=== PATIENT | male | born 1990 | race Caucasian/White ===

== ENCOUNTER 2017-11-24 12:57 | Emergency (ER) | payer OTHER, SELFPAY ==
--- NOTE | 2017-11-24 12:57 | DT_ITS ---
This patient was seen during an EMR downtime November 17, 2017 - November 24, 2017. This patient may have a combination of paper and electronic documentation or all paper documentation. All documentation is viewable within the e-chart portion of [employer] for each patient visit.
[2017-11-24 12:58] VITALS: BP 150/74; PULSE 70; RESP 16; TEMP 36.8; O2SAT 100; BMI 16.9
--- NOTE | 2017-11-24 13:34 | CT_ITS ---
STUDY: CT BRAIN WITHOUT CONTRAST REASON FOR EXAM: Male, 27 years old. HEADACHE X3 DAYS. RADIATION DOSAGE (If Supplied By Facility): CTDIvol = ( 44.99 ) mGy, DLP = ( 782.05 ) mGycm TECHNIQUE: Transaxial CT imaging of the brain was performed without administration of intravenous contrast material. Individualized dose optimization techniques were used for this CT. COMPARISON: None. FINDINGS: Normal soft tissue structures. Normal calvarium. Normal size ventricles and extra-axial spaces for the patient's age. Normal white matter tracts of the cerebral hemispheres. Normal basal ganglia and thalami. Normal brainstem. Normal cerebellum. There is no intracranial hemorrhage. There are no findings of an acute ischemic infarction. Normal visualized paranasal sinuses. CT/Brain/Head without Contrast IMPRESSION: Normal unenhanced CT scan of the brain. Electronically Signed: Angle Romero MD at 14:44 EDT Tel , Service support ,
[2017-11-24 15:00] VITALS: BP 129/90; PULSE 68; RESP 16; O2SAT 100
--- NOTE | 2017-11-24 15:36 | ED.VIS.GEN ---
History of Present Illness Chief Complaint: General Illness Informant: Patient Onset: Days - 2-3 Context: Gradual Onset Timing: Continuous Quality: achy Location: all over Current Severity: Moderate Maximum Severity: Moderate Worsened by: moving around Relieved by: nothing Associated Symptoms: headache occipital, photophobia Narrative: Feeling like he has a stiff neck along with achiness there. Has had headaches in the past but not quite like this. Some photophobia but no vision changes or diplopia. No thunderclap or sudden onset of any symptoms. No fevers or chills or coughing. No sore throat or odynophagia or earache or confusion or rash. He was bit by a tick 1-2 weeks ago but knows for a fact that was on for less than 24 hours before he pulled it off. Past Medical History - Allergies and Home Meds Allergies/Adverse Reactions: Allergies naproxen [From Naprosyn] Allergy (Verified 07/31/13 19:28) Itching Primary Care Physician: Valentin Rodrigues MD [Primary Care Provider] - Past Medical History: None Surgical History: no surgical history Smoking Status: Current every day smoker Drugs: None - No IV drug use Review of Systems All systems negative except as indicated General: Reports: Malaise Eyes: Reports: - - Photophobia. Denies: Visual changes - bilaterally, Blurred Vision - bilaterally, Diplopia ENT: Denies: Bilateral ear pain Cardiovascular: Denies: Chest pain, Palpitations Respiratory: Denies: Dyspnea, Cough Gastrointestinal: Denies: Abdominal pain, Nausea, Vomiting, Diarrhea Genitourinary: Denies: Dysuria, Hematuria Musculoskeletal: Reports: Myalgias, Neck pain, Back pain - low. Denies: Arthralgias, Swelling Skin: Denies: Rash, Abscess, Wounds Neurological: Reports: Headache. Denies: Weakness, Parasthesia, Numbness Endocrine: Denies: Polyuria, Polydipsia, Heat intolerance, Cold intolerance Physical Exam Vital Signs/Narrative: Vital Signs Temp Pulse Resp BP Pulse Ox 11/24/17 15:00 68 16 129/90 H 100 11/24/17 12:58 98.3 F 70 16 150/74 H 100 Inital Vital Signs reviewed: Yes General: Well nourished, Well developed, - - Well-appearing NAD Head: Normocephalic, Atraumatic Eyes: Perrl - No objective photophobia, EOMI ENT: Moist mucous membranes, No rhinorrhea Neck: Supple, Nontender, No lymphadenopathy, - - Full range of motion without any apparent difficulty, turning his head to look behind him at family members Cardiovascular: Regular rate, Regular rhythm, No murmurs Respiratory: No distress, CTA bilaterally, Chest nontender Abdomen: Soft, Nontender, Nondistended, Normal bowel sounds Back: Nontender, Normal Inspection Extremities: Nontender, No edema Skin: Normal color, No rash Neurological: Alert, Oriented x3, Cranial nerves II-XII grossly intact, Normal Strength, Normal Sensation, Normal DTR, Normal Gait Psychological: Normal affect Diagnostic/Tx/Re-eval Clinical Impression(s) from Imaging Studies Brain CT 11/24/17 13:34 IMPRESSION: Normal unenhanced CT scan of the brain. Electronically Signed: Angle Romero MD at 14:44 EDT Tel , Service support , - Medical Decision Making Given his new unusual headache occipitally, CT was obtained and is unremarkable. I discussed at length with patient and family concerning Lyme disease and meningitis, which I do not think he has either. I offered LP, he declines, as I discussed certainly there is a possibility of viral meningitis, but I am at a very low suspicion for herpes meningitis. Furthermore we discussed that specifically, he has never had herpes before and is monogamous with his significant other. He is encouraged to return for signs/symptoms of meningitis, confusion, etc. He is comfortable with supportive care following up with his doctor at this time. ED Disposition - Plan for ED Patient: Disposition: Home or Assisted Living Chief Complaint: General Illness Diagnosis: Viral syndrome Instructions: ED Viral Syndrome Referrals: Valentin Rodrigues MD [Primary Care Provider] - 3-5 Days if not improving
[2017-11-24] MEDS: Ibuprofen 600 MG Tablet PO (15:43)
== END 2017-11-24 15:44 | disposition home or self-care (01) ==
PROVIDERS: Emergency Provider Emergency Medicine; Family Provider Family Medicine; PCP Family Medicine
DX: B34.9 Viral infection, unspecified (principal); F17.200 Nicotine dependence, unspecified, uncomplicated
CPT/HCPCS: 70450; 99283

== ENCOUNTER 2018-06-24 16:53 | Emergency (ER) | payer OTHER, SELFPAY ==
[2018-06-24 16:54] VITALS: BP 146/83; PULSE 69; RESP 18; TEMP 37.2; O2SAT 100; BMI 19.2
[2018-06-24 17:02] VITALS: BP 145/96; PULSE 74; PULSE 81; RESP 14; RESP 17; TEMP 36.8; O2SAT 100
--- NOTE | 2018-06-24 17:14 | EKG12_ITS ---
Test Reason : CP Blood Pressure : / mmHG Vent. Rate : 074 BPM Atrial Rate : 074 BPM P-R Int : 154 ms QRS Dur : 082 ms QT Int : 354 ms P-R-T Axes : 080 079 059 degrees QTc Int : 392 ms Normal sinus rhythm with sinus arrhythmia Normal ECG Confirmed by SANJANA HERNANDEZ, MANDEEP ([id number]), photography editor ALFREDO PARNELL ([id number]) on 06/29/2018 10:11:46 AM Referred By: FABIOLA Confirmed By:MANDEEP ALLAN MD
--- NOTE | 2018-06-24 17:17 | ED.DCSUM_ITS ---
- ER Visit Summary Date of Service: 06/24/18 Chief Complaint: Chest tightness and shortness of breath History of Present Illness: The patient is a 28 M who feels as if he cannot get a deep breath over the past 3 days. He describes a tight bandlike sensation around his chest. Patient states if he goes out to side and breathing the cold air he can breathe just fine with no difficulty. He has not had significant cough. He has a history of palpitations and continues to have these intermittently, but no worse than his baseline. Family history significant for sclerosing of the heart and an uncle and a grandmother with pulmonary emboli, attributed to her cancer. Physical Examination: Vital signs are unremarkable. Patient sitting on the side of the bed no acute distress. He is alert and talkative. Head neck examination normal. Heart is regular rate and rhythm. Lung sounds are clear. Abdomen is soft and nontender. Peripheral pulses are noted throughout. Test Results: CBC and chemistry studies are unremarkable. Troponin is less than 0.015. EKG is sinus at 74 with no sign of acute ischemia. Two-view chest x-ray shows no acute process. Patient has not had any significant arrhythmias noted on alarm security or surveillance monitor. Emergency Department Course and Treatment: Test results are discussed with patient and mother at bedside. He will continue to monitor his symptoms. He is to follow with his primary care physician and return for any worsening symptoms or concerns. Treatment Plan: [] Disposition: Discharge Impression: Atypical chest pain This note was generated with [employer] dictation software. It may contain incorrect words, spelling, and punctuation that were not noted in review of the chart prior to signing ED Disposition - Plan for ED Patient: Chief Complaint: Shortness of Breath Referrals: Valentin Rodrigues MD [Primary Care Provider] -
--- NOTE | 2018-06-24 17:24 | ED.RN ---
PT REFUSING IV AT THIS TIME. BLOOD DRAW COMPLETED. DR. HICKS INFORMED.
--- NOTE | 2018-06-24 17:25 | RAD_ITS ---
STUDY: X-RAY CHEST REASON FOR EXAM: Male, 28 years old. Shortness of breath with heaviness of the chest. TECHNIQUE: PA and lateral chest COMPARISON: None. FINDINGS: The lungs are clear and expanded. Normal cardiomediastinal silhouette, leeanna and pleural margins. No acute osseous or upper abdominal process. RAD/Chest PA and Lateral IMPRESSION: No acute cardiopulmonary process. Electronically Signed: Quentin Bland MD at 18:07 EST Tel , Service support ,
[2018-06-24 17:47] LABS: Absolute Lymphocyte Count 2.48 X10^3/ul (0.83-4.51); Basophil# 0.02 X10^3/uL; Basophil% 0.4 % (0-1); Hematocrit 41.9 % (40-54); Hemoglobin 14.5 g/dl (13.0-16.5); Lymphocyte # 2.48 X10^3/ul (4.0); Lymphocyte % 48.4 % (19-41); Mean Corp Hgb Conc 34.6 g/gl (32-36); Mean Corpuscular Volume 89.5 fL (80-94); Mean Platelet Vol. 10.5 fl (6.2-12.0); Monocyte# 0.54 X10^3/uL; Monocyte% 10.5 % (0-10); Neutrophil # 1.97 X10^3/uL (2.7-7.7); Neutrophil % 38.5 % (47-70); Platelet Count 227 K/mm3 (150-450); RBC Distribution Width CV 12.5 % (11.6-14.6); Red Blood Count 4.68 M/mm3 (4.6-6.2); White Blood Count 5.1 K/mm3 (4.4-11.0)
[2018-06-24 17:51] LABS: Anion Gap 6 (5-15); BUN 13 mg/dL (7-18); BUN/Creat Ratio 16.1 RATIO (10-20); Calcium,Total 8.8 mg/dL (8.5-10.1); Chloride 106 mmol/L (98-107); Creatinine, Serum 0.81 mg/dL (0.70-1.30); EST Glomerular Filtration Rate 120 mL/min (>60); Est Glom Filt Rate - Afr Amer 145 mL/min (>60); Glucose 84 mg/dL (74-106); Sodium Level 139 mmol/L (136-145)
[2018-06-24 18:01] LABS: POSITIVE COUNT NO; POSITIVE DIFFERENTIAL NO; POSITIVE MORPHOLOGY NO
--- NOTE | 2018-06-24 18:27 | ED.DEP ---
ED Disposition - Plan for ED Patient: Disposition: Home or Assisted Living Chief Complaint: Shortness of Breath Instructions: ED Chest Pain Atypical Unkn Cause Referrals: Valentin Rodrigues MD [Primary Care Provider] - 5-7 Days
[2018-06-24 18:36] VITALS: BP 137/94; PULSE 78; RESP 17; O2SAT 98
== END 2018-06-24 18:37 | disposition home or self-care (01) ==
PROVIDERS: Emergency Provider Emergency Medicine; Family Provider Family Medicine; PCP Family Medicine
DX: R07.89 Other chest pain (principal); R05 Cough; R06.00 Dyspnea, unspecified; F17.200 Nicotine dependence, unspecified, uncomplicated
CPT/HCPCS: 36415; 71046; 80048; 84484; 85025; 93005; 99283

== ENCOUNTER 2021-10-01 10:18 | Outpatient (CLI) | payer BC, SELFPAY ==
[2021-10-01 15:46] LABS: Chlamydia Trachomatis by PCR Negative (Negative); Neisserai gonorrhoeae by PCR Negative (Negative); Probe Check PASS; Sample Adequacy Control PASS; Specimen Processing Control PASS
== END 2021-10-01 23:59 | disposition home or self-care (01) ==
LOC: LAB 10:19
PROVIDERS: PCP Family Medicine; Referring Provider Nurse Practitioner Family; Visit Provider Nurse Practitioner Family
DX: R30.0 Dysuria (principal)
CPT/HCPCS: 87086; 87491; 87591

== ENCOUNTER 2022-09-28 20:38 | Emergency (ER) | payer OTHER, SELFPAY ==
[2022-09-28 20:39] VITALS: BP 165/84; PULSE 129; RESP 18; TEMP 36.6; O2SAT 100
--- NOTE | 2022-09-28 20:46 | EKG12_ITS ---
Test Reason : PALPITATIONS Blood Pressure : / mmHG Vent. Rate : 117 BPM Atrial Rate : 117 BPM P-R Int : 180 ms QRS Dur : 080 ms QT Int : 310 ms P-R-T Axes : 074 080 053 degrees QTc Int : 432 ms Sinus tachycardia Otherwise normal ECG Confirmed by THOM MCCLENDON ([id number]), market editor MINDY DELGADO ([id number]) on 10/01/2022 7:06:22 AM Referred By: Mercedez Torres Confirmed By:THOM MCCLENDON
--- NOTE | 2022-09-28 20:55 | RAD_ITS ---
INDICATION: Palpitations, chest pain EXAMINATION/TECHNIQUE: X-RAY - XR Chest 1 View COMPARISON: 06/24/2018 FINDINGS: LINES/DEVICES: None. LUNGS: No consolidation, edema or effusion. No pneumothorax. MEDIASTINUM AND CARDIOVASCULAR STRUCTURES: Cardiac silhouette not enlarged. Central airways and mediastinal contour are unremarkable. RAD/Chest 1 View (Portable) IMPRESSION: No radiographic evidence of acute cardiopulmonary disease. Electronically Signed: Altaf Last MD at 21:05 EDT ,
[2022-09-28 21:02] LABS: Absolute Lymphocyte Count 2.95 X10^3/uL (0.83-4.51); Absolute Neutrophil Count 2.1 X10^3/uL (2.0-7.7); Basophil# 0.03 X10^3/uL; Basophil% 0.5 % (0-1); Eosinophil# 0.07 X10^3/uL; Eosinophils% 1.2 % (0-5); Hematocrit 39.4 % (40-54); Hemoglobin 13.4 g/dL (13.0-16.5); Lymphocyte # 2.95 X10^3/ul (0.83-4.51); Lymphocyte % 49.6 % (19-41); Mean Corpuscular Hgb 30.5 pg (27.0-32.0); Mean Corpuscular Volume 89.5 fL (80-94); Mean Platelet Vol. 9.5 fl (6.2-12.0); Monocyte# 0.82 X10^3/uL; Monocyte% 13.8 % (0-10); NRBC Flagged by Analyzer 0 % (0-5); Neutrophil # 2.07 X10^3/uL (2.7-7.7); Neutrophil % 34.7 % (47-70); Platelet Count 242 K/mm3 (150-450); RBC Distribution Width CV 11.6 % (11.6-14.6); RBC Distribution Width SD 37.7 fl (35.1-43.9)
[2022-09-28 21:09] LABS: International Normalized Ratio 1.1; Prothrombin Time (Protime)PT. 13.9 SECONDS (11.7-14.9)
[2022-09-28 21:21] LABS: Anion Gap 5 (5-15); BUN 29 mg/dL (7-18); Calcium,Total 8.8 mg/dL (8.5-10.1); Chloride 105 mmol/L (98-107); Creatinine, Serum 1.16 mg/dL (0.70-1.30); EST Glomerular Filtration Rate 77 mL/min (>60); Est Glom Filt Rate - Afr Amer 93 mL/min (>60); Estimated Creatinine Clearance 35.48 ml/min; Glucose 162 mg/dL (74-106); Potassium 3.4 mmol/L (3.5-5.1); Sodium Level 139 mmol/L (136-145); Troponin-I HS (w/2H Reflex) 7 pg/mL (3.0-78.0)
[2022-09-28 22:30] VITALS: BP 146/63; PULSE 83; RESP 16; O2SAT 98
--- NOTE | 2022-09-28 22:35 | EX.ED.DYSGE1 ---
HPI History of Present Illness Chief Complaint: Palpitations Narrative Narrative: Patient is a 32-year-old male with ongoing history of palpitations (over had recent evaluation with echocardiogram and Holter monitor through [facility]) presenting with an episode of palpitations. Patient states normally he will have 1-2 beats of a palpitation in his chest however this evening he felt that his heart was racing and it was palpating for about 30 minutes. He states he felt dizzy/lightheaded during this. He did not check his heart rate at the time. His outpatient work-ups been coordinated through his primary care PA, Tal Hathaway. At one point he was prescribed anxiety medicines and took it for about a month but did not refill it as did not feel it helped. [facility] chart review performed. Patient had a ZIO heart monitor for 10 days on 08/07/2020 which showed predominant underlying rhythm of sinus rhythm. He had echocardiogram on 07/28/2020 which showed EF of 62% no significant valvular disease. PFSH PFS Home Medications NK 11/24/17 [History Last Taken Unknown] Allergy/AdvReac Type Severity Reaction Status Date / Time naproxen [From Naprosyn] Allergy Itching Verified 09/28/22 20:40 Social History (Updated 05/14/20 @ 12:40 by Yessenia HERNANDEZ, PA) Smoking Status: Current every day smoker tobacco type: cigarettes ROS ROS ED Constitutional Constitutional ED: Reports other Details: dizzy ; Denies chills or fever(s) Cardiovascular Cardiovascular: Reports palpitations Respiratory/Chest Respiratory/Chest: Denies cough or dyspnea Gastrointestinal Gastrointestinal: Denies nausea or vomiting Musculoskeletal Musculoskeletal: Denies arthralgias or myalgias Integumentary Denies rash Neurologic Neurologic: Denies headache(s) or weakness Hematologic/Lymphatic Hematologic/Lymphatic: Denies easy bleeding or easy bruising EXAM Physical Exam Const Vital Signs: 09/28/22 20:39 09/28/22 22:24 09/28/22 22:30 Temperature 97.8 F Temperature Source Temporal Pulse Rate 129 H 83 Respiratory Rate 18 16 Blood Pressure 165/84 H 146/63 H Blood Pressure Mean 111 90 Pulse Ox 100 98 Oxygen Delivery Method Room Air Room Air Room Air 09/29/22 00:00 09/29/22 02:07 09/29/22 02:21 Temperature 98.1 F 98.1 F Temperature Source Oral Oral Pulse Rate 77 64 67 Respiratory Rate 16 14 18 Blood Pressure 111/64 100/82 H 100/64 Blood Pressure Mean 79 88 Pulse Ox 98 98 Oxygen Delivery Method Room Air Room Air Positive well nourished and well developed General Appearance ED: well developed HEENT Reports moist mucous membranes Eyes PERRL and EOMs intact bilaterally Neck supple Chest Wall inspection of chest normal and palpation of chest normal Resp normal respiratory effort and clear to auscultation bilaterally Cardio regular rhythm and no murmurs Rate: tachycardic GI normal to inspection, nondistended, normoactive bowel sounds and non-tender Extremity normal to inspection Neuro oriented x3 Sensorium / Orientation: alert Motor Exam: Negative for general weakness Psych mental status grossly normal Skin no rashes or lesions noted MDM MDM MDM Narrative Medical decision making narrative: Patient is evaluated for results like an episode of palpitations and lightheadedness. Upon arrival he is tachycardic however his EKG shows sinus tach. While in the ER without any mention his heart rate and blood pressure improved significantly. Cardiac work-up including a D-dimer, TSH, troponin, EKG as well as electrolytes are obtained. These are all normal. Patient counseled the cause of his symptoms is not clear. Counseled that he could be having episodes of SVT or other arrhythmia. Encouraged to follow-up with cardiology. It seems that overall patient is only followed up with his PCP for outpatient cardiac testing but not actually seen cardiology. I did review patient's most recent echo and Holter monitor from 2020 through [facility]. These were largely normal. Patient and family agreeable with this plan of care. Patient discharged home in stable and improved condition. Lab Data Attestation: I reviewed the patient's lab results. Labs: Laboratory Results - last 24 hr 09/28/22 09/28/22 09/28/22 20:25 20:25 20:25 WBC 6.0 RBC 4.40 L Hgb 13.4 Hct 39.4 L MCV 89.5 MCH 30.5 MCHC 34.0 RDW Std Deviation 37.7 RDW Coeff of Rozina 11.6 Plt Count 242 MPV 9.5 Immature Gran % (Auto) 0.200 Neut % (Auto) 34.7 L Lymph % (Auto) 49.6 H Hudspeth % (Auto) 13.8 H Eos % (Auto) 1.2 Baso % (Auto) 0.5 Absolute Neuts (auto) 2.1 Absolute Lymphs (auto) 2.95 Nucleated RBC % 0 PT 13.9 INR 1.1 D-Dimer Quant (PE/DVT) Sodium 139 Potassium 3.4 L Chloride 105 Carbon Dioxide 29.0 Anion Gap 5 BUN 29 H Creatinine 1.16 Estim Creat Clear Calc 35.48 Est GFR (MDRD) Af Amer 93 Est GFR (MDRD) Non-Af 77 BUN/Creatinine Ratio 25.0 H Glucose 162 H Calcium 8.8 Magnesium Troponin I High Sens 7 TSH 09/28/22 09/28/22 09/29/22 20:25 20:25 01:03 WBC RBC Hgb Hct MCV MCH MCHC RDW Std Deviation RDW Coeff of Rozina Plt Count MPV Immature Gran % (Auto) Neut % (Auto) Lymph % (Auto) Hudspeth % (Auto) Eos % (Auto) Baso % (Auto) Absolute Neuts (auto) Absolute Lymphs (auto) Nucleated RBC % PT INR D-Dimer Quant (PE/DVT) < 0.27 L Sodium Potassium Chloride Carbon Dioxide Anion Gap BUN Creatinine Estim Creat Clear Calc Est GFR (MDRD) Af Amer Est GFR (MDRD) Non-Af BUN/Creatinine Ratio Glucose Calcium Magnesium 2.0 Troponin I High Sens 7 TSH 2.25 Radiography Diagnostic Testing: Clinical Impression(s) from Imaging Studies Chest X-Ray 09/28/22 20:55 IMPRESSION: No radiographic evidence of acute cardiopulmonary disease. Electronically Signed: Altaf Last MD at 21:05 EDT Reading Location ID and State: [facility] / [place] Tel , Service support , Rhythm Strip Rhythm Strip: Sinus Tach Rate: 117 Ectopy: None EKG Initial EKG: Attestation: I personally reviewed and interpreted this EKG as follows: Interpretation: Sinus Tachycardia Comments: Sinus tachycardia rate of 117 bpm Normal intervals Normal ST segments Normal axis Discharge Plan Triage Chief Complaint: Palpitations ED Provider: Mercedez Torres Dx/Rx/DC Orders Clinical Impression: Heart palpitations, Tachycardia Instructions: ED Palpitations Prescriptions: No Action NK Primary Care Provider: Valentin Rodrigues Referrals: Micah Castaneda MD [Med Staff - Active Staff] - As soon as possible Valentin Rodrigues MD [Primary Care Provider] - Activity Restrictions/Additional Instructions: Please follow-up with cardiology. Your heart rate showed tachycardia but no other abnormalities. It did improve while in the emergency room. The exact cause of this is not clear which is why I would like you to follow-up with cardiology. Your work-up was largely normal today. Disposition Disposition: Home, Self Care Discharge Date/Time: 09/29/22 02:21
[2022-09-28 22:55] LABS: Thyroid Stim Hormone (TSH) 2.25 uIU/mL (0.358-3.74)
[2022-09-29] VITALS: BP 111/64; PULSE 77; RESP 16; TEMP 36.7; O2SAT 98
[2022-09-29 00:26] LABS: D-Dimer Quantitative (DVT/PE) < 0.27 FEU/ug/m (0.27-0.49)
[2022-09-29 01:26] LABS: Troponin-I HS 7 pg/mL (3.0-78.0)
[2022-09-29 02:07] VITALS: BP 100/82; PULSE 64; RESP 14; TEMP 36.7; O2SAT 98
[2022-09-29 02:21] VITALS: BP 100/64; PULSE 67; RESP 18
== END 2022-09-29 02:21 | disposition home or self-care (01) ==
PROVIDERS: Emergency Provider Emergency Medicine; PCP Family Medicine; Referring Provider Emergency Medicine; Visit Provider Emergency Medicine
DX: R00.2 Palpitations (principal); R00.0 Tachycardia, unspecified; F17.210 Nicotine dependence, cigarettes, uncomplicated
CPT/HCPCS: 71045; 80048; 83735; 84443; 84484; 85025; 85379; 85610; 93005; 99284

== ENCOUNTER → 2023-03-03 | Outpatient (CLI) | payer OTHER, SELFPAY ==
--- NOTE | 2023-03-03 09:54 | ECHOD_ITS ---
Reason For Study: Palpatations Procedure This was a 2D Doppler, Color Flow transthoracic echocardiogram. Exam performed in department. Left Ventricle Normal LV size. Left ventricular systolic function is normal. The estimated ejection fraction is 60 %. Normal diastology for age. No regional wall motion abnormalities noted. Right Ventricle Normal RV size. Normal systolic function. Atria Normal left atrium. Normal right atrium. Mitral Valve Normal mitral valve. Mild (1+) mitral valve insufficiency. Tricuspid Valve Normal tricuspid valve. Mild (1+) tricuspid valve insufficiency. Pulmonary artery systolic pressure is 30 mmHg. Aortic Valve Trisinus/trileaflet aortic valve. Pulmonic Valve Normal pulmonic valve. Great Vessels Normal aortic root. The pulmonary artery is normal size. Normal inferior vena cava. Pericardium/Pleural No pericardial effusion. MMode/2D Measurements & Calculations LVIDd: 4.5 cm IVSd: 0.72 cm Ao root diam: 2.1 cm LVIDs: 3.1 cm LVPWd: 0.78 cm RVDd: 2.9 cm FS: 30.6 % LAV(MOD-bp): 21.9 ml LVAd ap4: 25.2 cm2 SV(MOD-sp4): 39.6 ml LAV(MOD-bp) Indexed: 12.5 ml/m2 LVLd ap4: 8.2 cm LAV(MOD-sp2): 21.7 ml EDV(MOD-sp4): 65.2 ml LAV(MOD-sp4): 17.0 ml EDV(sp4-el): 65.9 ml LVAs ap4: 13.9 cm2 LVLs ap4: 6.5 cm ESV(MOD-sp4): 25.6 ml ESV(sp4-el): 25.1 ml EF(MOD-sp4): 60.7 % EF(sp4-el): 62.0 % SV(sp4-el): 40.8 ml LA A4 area: 8.4 cm2 LA dimension(2D): 3.3 cm RA A4 area: 8.6 cm2 TAPSE: 2.2 cm Time Measurements MV dec time: 0.17 sec Doppler Measurements & Calculations MV E max juan carlos: 89.7 cm/sec Lat Peak E' Juan Carlos: 22.1 cm/sec Med Peak E' Juan Carlos: 13.8 cm/sec MV A max juan carlos: 35.5 cm/sec E/E' lat: 4.1 E/E' med: 6.5 MV E/A: 2.5 Ao V2 max: 98.2 cm/sec LV V1 max: 102.9 cm/sec MV dec slope: 527.3 cm/sec2 Ao max P.9 mmHg LV V1 max P.2 mmHg Ao V2 mean: 79.8 cm/sec Ao mean P.7 mmHg Ao V2 VTI: 22.2 cm PA V2 max: 117.0 cm/sec TR max juan carlos: 251.5 cm/sec TR max P.3 mmHg ECHO/Echo Complete Interpretation Summary Normal LV size. Left ventricular systolic function is normal. No regional wall motion abnormalities noted. The estimated ejection fraction is 60 %. Mild (1+) mitral valve insufficiency. Pulmonary artery systolic pressure is 30 mmHg. Ordering Physician: Mack Ng Referring Physician: Valentin Rodrigues Performed By: Thi Pascual, RDCS, RVT
== END | disposition home or self-care (01) ==
LOC: CVS 09:51
PROVIDERS: PCP Family Medicine; Referring Provider Internal Medicine Cardiovascular Disease; Visit Provider Internal Medicine Cardiovascular Disease
DX: R00.2 Palpitations (principal)
CPT/HCPCS: 93306

== ENCOUNTER 2024-04-19 22:56 | Emergency (ER) | payer OTHER, SELFPAY ==
[2024-04-19 22:56] VITALS: BP 132/92; PULSE 82; RESP 16; TEMP 37; O2SAT 97
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
[2024-04-19] MEDS: Acetaminophen 500 MG Tablet 1000 MG PO (23:25)
--- NOTE | 2024-04-19 23:30 | RAD_ITS ---
EXAM: XR RIGHT FOOT COMPLETE, 3 OR MORE VIEWS CLINICAL INDICATION: injury TECHNIQUE: Frontal, lateral and oblique views of the right foot. COMPARISON: No relevant prior studies available. FINDINGS: BONES/JOINTS: Mild bony bunion formation noted along the medial aspect of the first metatarsal head and. No acute fracture. No dislocation. Preservation of the joint space. No sclerotic or destructive changes observed. SOFT TISSUES: Minimal soft tissue swelling overlies the first metatarsal head bunion. No radiopaque foreign body. RAD/Foot min 3 Views IMPRESSION: No acute fracture or dislocation. Electronically Signed: Collin Guzman MD at 0:33 EST ,
== END 2024-04-20 00:19 | disposition home or self-care (01) ==
PROVIDERS: Emergency Provider Emergency Medicine; PCP Family Medicine; Visit Provider Emergency Medicine
DX: S90.31XA Contusion of right foot, initial encounter (principal); Z87.891 Personal history of nicotine dependence; X58.XXXA Exposure to other specified factors, initial encounter
CPT/HCPCS: 73630; 99283